=== PATIENT | male | born 1955 | race Caucasian/White ===

== ENCOUNTER → 2021-03-02 | Outpatient (CLI) | payer MEDICARE, OTHER ==
[~2021-03-02] MED LIST: ALBUTEROL2.5 MG/3 M INH; ALLER-EASE180 MG PO; ASPIR 8181 MG PO; ATORVASTATIN CA40 MG PO; BRIVIACT PO; CEPHALEXIN500 MG PO; COMBIVENT INHALE4 GM INH; DOXYCYCLINE HY100 MG PO; KLONOPIN TAB 00.5 MG PO; LAMICTAL200 MG PO; MONTELUKAST SOD10 MG PO; VIMPAT200 MG PO; WIXELA 500-501 EACH INH
== END ==
LOC: KOH-I 08:29
DX: F17.210 Nicotine dependence, cigarettes, uncomplicated (principal); R91.1 Solitary pulmonary nodule
CPT/HCPCS: 71271

== ENCOUNTER 2021-03-08 09:35 | Emergency (ER) | payer MEDICARE, OTHER ==
[~2021-03-08 09:35] MED LIST changes: -CEPHALEXIN500 MG PO; -DOXYCYCLINE HY100 MG PO
[2021-03-08] MEDS ORDERED: DOXYCYCLINE HY100 MG PO (12:45)
[2021-03-08] MEDS ORDERED: CEPHALEXIN500 MG PO (12:45)
== END 2021-03-08 12:50 | disposition home or self-care (01) ==
LOC: ER1 09:35
DX: L03.314 Cellulitis of groin (principal); F17.210 Nicotine dependence, cigarettes, uncomplicated; Z88.2 Allergy status to sulfonamides; Z79.899 Other long term (current) drug therapy
CPT/HCPCS: 99281

== ENCOUNTER → 2021-04-14 | Outpatient (CLI) | payer MEDICARE, OTHER ==
[~2021-04-14] MED LIST changes: +CEPHALEXIN500 MG PO; +DOXYCYCLINE HY100 MG PO
== END ==
LOC: EXRD 11:42
DX: J44.1 Chronic obstructive pulmonary disease with (acute) exacerbation (principal)
CPT/HCPCS: 71046

== ENCOUNTER → 2021-04-22 | Outpatient (CLI) | payer MEDICARE, OTHER | LOC: EXRD 08:54 | DX: Z13.6 Encounter for screening for cardiovascular disorders (principal) | CPT/HCPCS: 76706 ==

== ENCOUNTER 2021-04-25 18:57 | Emergency (ER) | payer MEDICARE, OTHER ==
[2021-04-25 19:52] LABS: RED BLOOD COUNT 4.68 M/UL (4.20-5.50); WHITE BLOOD COUNT 8.3 K/UL (4.5-11.0)
[2021-04-25 20:11] LABS: BUN/CREATININE RATIO 18 (0-10)
== END 2021-04-26 00:22 | disposition short-term general hospital (02) ==
LOC: ER1 18:57
PROVIDERS: Family Medicine
DX: R53.1 Weakness (principal); Z86.73 Personal history of transient ischemic attack (TIA), and cerebral infarction without residual deficits
CPT/HCPCS: 70450; 71045; 80053; 82550; 82553; 83874; 84484; 85025; 93005; 99285

== ENCOUNTER → 2021-05-18 | Outpatient (CLI) | payer MEDICARE, OTHER | LOC: KOH-I 15:48 | DX: M54.2 Cervicalgia (principal); G89.29 Other chronic pain; M47.812 Spondylosis without myelopathy or radiculopathy, cervical region | CPT/HCPCS: 72050 ==

== ENCOUNTER → 2021-06-01 | Outpatient (CLI) | payer MEDICARE, OTHER | LOC: ECHO 11:53 → EMI 11:53 → ECHO 12:00 | DX: I63.81 Other cerebral infarction due to occlusion or stenosis of small artery (principal) | CPT/HCPCS: ECHO; 70551; 93306 ==

== ENCOUNTER 2022-04-06 08:35 | Emergency (ER) | payer MEDICARE, OTHER ==
[2022-04-06 09:46] LABS: HEMOGLOBIN 14.6 gm/dl (14.0-17.5); RED BLOOD COUNT 4.87 M/UL (4.20-5.50)
[2022-04-06 10:08] LABS: BUN/CREATININE RATIO 17 (0-10)
== END 2022-04-06 13:39 | disposition home or self-care (01) ==
LOC: ER1 08:35
PROVIDERS: Family Medicine
DX: G40.909 Epilepsy, unspecified, not intractable, without status epilepticus (principal); F12.90 Cannabis use, unspecified, uncomplicated; R27.0 Ataxia, unspecified; F17.200 Nicotine dependence, unspecified, uncomplicated; Z20.822 Contact with and (suspected) exposure to COVID-19; E87.1 Hypo-osmolality and hyponatremia; J44.9 Chronic obstructive pulmonary disease, unspecified; Z88.2 Allergy status to sulfonamides; Z88.8 Allergy status to other drugs, medicaments and biological substances
CPT/HCPCS: 70450; 71045; 80053; 80175; 80307; 81001; 82550; 82553; 83605; 84439; 84443; 84484; 85025; 93005; 99284; G0480; U0002

== ENCOUNTER → 2022-05-25 | Outpatient (CLI) | payer MEDICARE, OTHER | LOC: KOH-I 11:30 | DX: F17.210 Nicotine dependence, cigarettes, uncomplicated (principal); R91.1 Solitary pulmonary nodule | CPT/HCPCS: 71271 ==

== ENCOUNTER → 2022-06-21 | Outpatient (CLI) | payer MEDICARE, OTHER | LOC: CT 06-10 13:30 | DX: G45.9 Transient cerebral ischemic attack, unspecified (principal); R29.818 Other symptoms and signs involving the nervous system; Z00.00 Encounter for general adult medical examination without abnormal findings; R91.1 Solitary pulmonary nodule | CPT/HCPCS: 36415; 70496; 70498; 82565; 84520; Q9967 ==

== ENCOUNTER → 2022-06-28 | Day surgery (SDC) | payer MEDICARE, OTHER ==
[~2022-06-28] MED LIST changes: +ADVAIR 250-501 EACH INH
== END | disposition home or self-care (01) ==
LOC: OR 07:08
DX: Z12.11 Encounter for screening for malignant neoplasm of colon (principal); D12.5 Benign neoplasm of sigmoid colon; D12.3 Benign neoplasm of transverse colon; K57.30 Diverticulosis of large intestine without perforation or abscess without bleeding; Z86.010 Personal history of colon polyps; J44.9 Chronic obstructive pulmonary disease, unspecified; G40.909 Epilepsy, unspecified, not intractable, without status epilepticus; F17.200 Nicotine dependence, unspecified, uncomplicated; Z86.73 Personal history of transient ischemic attack (TIA), and cerebral infarction without residual deficits; Z79.82 Long term (current) use of aspirin; Z79.899 Other long term (current) drug therapy; Z88.2 Allergy status to sulfonamides; Z88.8 Allergy status to other drugs, medicaments and biological substances
CPT/HCPCS: J2704; J7040